=== PATIENT | male | born 1955 | race Caucasian/White ===

== ENCOUNTER 2024-09-06 18:47 | Emergency (ER) | payer MEDICARE ==
[2024-09-06 19:25] VITALS: BP 135/75; PULSE 102; RESP 16; TEMP 97.8; O2SAT 97
--- NOTE | 2024-09-06 19:32 | ERPHSYRPT ---
- History of Present Illness Time Seen by Provider: 09/06/24 19:00 Source: patient Exam Limitations: no limitations Patient Subjective Stated Complaint: patient was stung by bee on Thursday visited urgent care on Thursday [employer] [place] around sting site said if it goes outside [place] go to hospital Triage Nursing Assessment: - Patient is alert and oriented to person, place, and time. - Pupils are equal, round, and reactive to light (PERRLA). - Gait is steady. - Lung sounds are clear. - Notable findings include a large rash and reddened area around the sting site, which has extended beyond the [place] marked by urgent care in [place]. - Patient reports no difficulty breathing, no shortness of breath, and no issues with swallowing. - Swelling and rash are currently localized to the sting site. Physician History: Patient is a 68-year-old male presents to our ED for evaluation of skin redness. Patient states that he was stung by wasp on Thursday. Patient visited an urgent care in [facility] on Thursday. His clinic is feeling patient was started on doxycycline and given a topical antibiotic as well. The area was demarcated. Patient states he was advised to come to our ED if the redness extends beyond the demarcated area. Patient states that the redness has grown beyond the demarcated area. He adds that the area of redness is itchy. Patient otherwise asymptomatic. No systemic manifestations. No fever no pain no nausea no vomiting no diarrhea no rash. No shortness of breath. No difficulty breathing. at bedside. They voiced no other complaints or concerns at this time. Portions of this note were created with voice recognition technology. There may be grammatical, spelling, punctuation or sound alike errors Timing/Duration: other (3 days ago) Severity: moderate Modifying Factors: Improves With: nothing Associated Symptoms: other (Pruritus) Allergies/Adverse Reactions: cephalexin Allergy (Verified 09/06/24 19:27) Hx Tetanus, Diphtheria Vaccination/Date Given: Yes Hx Influenza Vaccination/Date Given: Yes Hx Pneumococcal Vaccination/Date Given: Yes Immunizations Up to Date: Yes Travel Risk - International Travel Have you traveled outside of the country in past 3 weeks: No - Emerging Infectious Disease Are you exhibiting symptoms associated with any current EIDs: No - Review of Systems Constitutional: No Symptoms, No Fever, No Chills Eyes: No Symptoms Ears, Nose, & Throat: No Symptoms Respiratory: No Symptoms, No Cough, No Dyspnea Cardiac: No Symptoms, No Chest Pain, No Edema, No Syncope Abdominal/Gastrointestinal: No Symptoms, No Abdominal Pain, No Nausea, No Vomiting, No Diarrhea Genitourinary Symptoms: No Symptoms, No Dysuria Musculoskeletal: No Symptoms, No Back Pain, No Neck Pain Skin: No Symptoms, No Rash Neurological: No Symptoms, No Dizziness, No Focal Weakness, No Sensory Changes Psychological: No Symptoms Endocrine: No Symptoms Hematologic/Lymphatic: No Symptoms Immunological/Allergic: No Symptoms All Other Systems: Reviewed and Negative - Past Medical History Pertinent Past Medical History: Yes Cardiac History: High Cholesterol, Hypertension, Other Musculoskeletal History: No Pertinent History GI Medical History: GERD History: No Pertinent History Psycho-Social History: No Pertinent History Male Reproductive Disorders: No Pertinent History - Past Surgical History Past Surgical History: Yes Neuro Surgical History: No Pertinent History Cardiac: Cardiac Catheterization Gastrointestinal: Hernia Repair Musculoskeletal: Other - Social History Smoking Status: Never smoker - Social Determinants of Health Will the patient participate in the screening: Yes Do you worry about a steady place to live?: No Do you have any problems with any of the following?: No known problems In the past 12 months,have you had to go without utilities?: No Transportation Issues: No Has anyone in your support network made you feel unsafe?: No Have you or anyone in your house had to go w/o enough food: No - Nursing Vital Signs Nursing Vital Signs: Initial Vital Signs Temperature 97.8 F 09/06/24 18:48 Pulse Rate 102 H 09/06/24 18:48 Respiratory Rate 16 09/06/24 18:48 Blood Pressure 135/75 09/06/24 18:48 O2 Sat by Pulse Oximetry 98 09/06/24 18:48 Pain Scale Pain Intensity 0 - Physical Exam General Appearance: no apparent distress, alert Eye Exam: PERRL/EOMI, eyes nml inspection Ears, Nose, Throat Exam: normal ENT inspection, moist mucous membranes Neck Exam: normal inspection, full range of motion Respiratory Exam: normal breath sounds, lungs clear, No respiratory distress Cardiovascular Exam: regular rate/rhythm, normal heart sounds, normal peripheral pulses Gastrointestinal/Abdomen Exam: soft, normal bowel sounds, No tenderness, No mass Back Exam: normal inspection, normal range of motion, No CVA tenderness, No vertebral tenderness Extremity Exam: normal inspection, normal range of motion, pelvis stable Neurologic Exam: alert, oriented x 3, cooperative, normal mood/affect, sensation nml, No motor deficits Skin Exam: normal color, warm, dry, other (There is an area of cellulitis within the demarcated line. Overlying soft tissue otherwise intact.), No rash Lymphatic Exam: No adenopathy SpO2 Interpretation: normal SpO2: 97 O2 Delivery: Room Air - Course Nursing assessment & vital signs reviewed: Yes - Progress Progress: improved Progress Note: 68-year-old male stung by wasp on Thursday 4 days ago. Patient saw a nurse practitioner at urgent care in [place]. Patient was started on doxycycline and another topical antibiotic. Patient was advised to come to our ED if the area of redness grew beyond the demarcated line. I compared the demarcated line with a photo of the reddened area before the line was applied. It appears the line is not drawn according to the area of redness. Additionally the doxycycline antibiotic was started yesterday. So the patient has only had 2 doses. This 24-hour window is not enough to positively impact our patient so the area of redness will grow until the antibiotic reaches therapeutic levels. That may take up to 48 hours. I advised them to discontinue the the topical antibiotic. Patient may take Benadryl [id number] as directed for itching. I advised them to return to our ED or to follow-up within 48 hours for reassessment. No need to change the antibiotic at this time. No need to add an antibiotic. and patient understand the instructions. All questions answered. They voiced no other complaints or concerns at this time. Portions of this note were created with voice recognition technology. There may be grammatical, spelling, punctuation or sound alike errors\ Complexity of problem addressed is moderate acute complicated. No critical care time. Complexity of data reviewed and analyzed is none. No specialized testing ordered. Diagnosis made based on history and physical exam. Risk of complication and or risk of morbidity/mortality of patient management is low. Vital stable. Time spent to discharge patient is approximately 10 minutes. Plan of care established for shared decision making. No social determinants of health present to impede follow-up. Portions of this note were created with voice recognition technology. There may be grammatical, spelling, punctuation or sound alike errors 09/06/24 19:40 Counseled pt/family regarding: diagnosis, need for follow-up - Departure Departure Disposition: Home Clinical Impression: Cellulitis, Pruritus Condition: Stable Critical Care Time: No Referrals: Provider,Unknown [Primary Care Provider, UNKNOWN] - Follow up/PCP as directed Instructions: Adverse Drug Reactions, Adult (DC) Additional Instructions: Discharge/Care Plan JENNI GARCIA was seen on 09/06/24 in the Emergency Room. The patient was counseled regarding Diagnosis,Lab results, Imaging studies, need for follow up and when to return to the Emergency Room. Prescriptions given: Discharge Note I have spoken with the patient and/or caregivers. I have explained the patient's condition, diagnosis and treatment plan based on the information available to me at this time. I have answered the patient's and/or caregiver's questions and addressed any concerns. The patient and/or caregivers have as good understanding of the patient's diagnosis, condition and treatment plan as can be expected at this point. The vital signs have been stable. The patient's condition is stable and appropriate for discharge from the emergency department. The patient will pursue further outpatient evaluation with the primary care physician or other designated or consulting physician as outlined in the discharge instructions. The patient and/or caregivers are agreeable to this plan of care and follow-up instructions have been explained in detail. The patient and/or caregivers have received these instruction. The patient/and or caregivers are aware that any significant change in condition or worsening of symptoms should prompt an immediate return to this or the closest emergency department or call 911.
== END 2024-09-06 19:40 | disposition home or self-care (01) ==
LOC: ED 18:47
DX: L03.90 Cellulitis, unspecified (principal); L29.9 Pruritus, unspecified; E78.5 Hyperlipidemia, unspecified; I10 Essential (primary) hypertension
CPT/HCPCS: 99281